=== PATIENT | female | born 1975 | race Hispanic/Latino ===

== ENCOUNTER 2019-08-06 19:32 | Emergency (ER) | payer OTHER ==
[~2019-08-06] VITALS: Ht 162.6 cm; Wt 97.5 kg
[2019-08-06] MEDS ORDERED: IBUPROFEN 400 MG TAB PO ONE (20:30)
[2019-08-06] MEDS ORDERED: CYCLOBENZAPRINE HCL 10 MG TAB PO ONE (20:30)
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
== END 2019-08-06 22:00 | disposition home or self-care (01) ==
LOC: ER 19:32
DX: S16.1XXA Strain of muscle, fascia and tendon at neck level, initial encounter (principal); S39.012A Strain of muscle, fascia and tendon of lower back, initial encounter; M54.6 Pain in thoracic spine; V43.52XA Car driver injured in collision with other type car in traffic accident, initial encounter; Y92.488 Other paved roadways as the place of occurrence of the external cause
CPT/HCPCS: 72040; 72072; 99283